=== PATIENT | female | born 1975 | race Two or more races ===

== ENCOUNTER 2020-07-02 15:24 | Outpatient (CLI) | payer BC | END 2020-07-02 23:59 | disposition home or self-care (01) | LOC: MSC 15:24 | PROVIDERS: ATTEND Internal Medicine | DX: R07.89 Other chest pain (principal); F41.9 Anxiety disorder, unspecified; Z87.42 Personal history of other diseases of the female genital tract; R63.5 Abnormal weight gain; Z68.29 Body mass index [BMI] 29.0-29.9, adult ==